=== PATIENT | female | born 1990 | race Caucasian/White ===

== ENCOUNTER 2024-03-15 03:19 | Emergency (ER) | payer OTHER ==
[~2024-03-15] VITALS: Ht 182.9 cm; Wt 122.0 kg
[~2024-03-15 03:19] MED LIST: CYCLOBENZAPRINE10 MG PO; PRENATAL MULTI1 EAC3 PO
[2024-03-15] MEDS ORDERED: OMEPRAZOLE20 MG PO (03:29)
[2024-03-15] MEDS ORDERED: DEXAMETHASONE SOD PHOS 4 MG/ML VIAL IM ONE (03:30)
[2024-03-15] MEDS ORDERED: LORazepam 0.5 MG TAB PO ONE (03:30)
[2024-03-15] MEDS ORDERED: LORazepam 1 MG HOME.PACK PO ONE (04:15)
[2024-03-15] MEDS ORDERED: methylPREDNISolone 4 MG HOME.PACK PO ONE (04:15)
[2024-03-15 04:18] VITALS: BP 118/83
== END 2024-03-15 04:19 | disposition home or self-care (01) ==
LOC: ED 03:19
DX: J02.9 Acute pharyngitis, unspecified (principal); Z88.0 Allergy status to penicillin; Z79.899 Other long term (current) drug therapy
CPT/HCPCS: 70360; 87651; 96372; 99283; J1100

== ENCOUNTER 2025-02-17 05:16 | Inpatient (IN) | payer OTHER ==
[~2025-02-17] VITALS: Ht 180.3 cm; Wt 115.2 kg
[~2025-02-17 05:16] MED LIST changes: +OMEPRAZOLE20 MG PO
[2025-02-17] MEDS ORDERED: OXYTOCIN/0.9 % SODIUM CHLORIDE 30 UNITS/500 ML BAG IV SCH (05:30)
[2025-02-17] MEDS ORDERED: MAGNESIUM HYDROXIDE/AL HYDROX 30 ML CUP PO PRN ×2 (05:30→15:45)
[2025-02-17] MEDS ORDERED: CALCIUM CARBONATE 500 MG CHEW PO PRN ×2 (05:30→15:45)
[2025-02-17] MEDS ORDERED: TERBUTALINE SULFATE 1 MG/ML AMP SUB-Q PRN (05:30)
[2025-02-17] MEDS ORDERED: LIDOCAINE HCL 1% 30 ML SDV INJ PRN (05:30)
[2025-02-17] MEDS ORDERED: LACTATED RINGER'S 1,000 ML IV PRN (05:30)
[2025-02-17 05:54] VITALS: BP 114/70
[2025-02-17 06:15] LABS: MCH 27.3 PG (25.6-32.2); MCHC 33.6 g/dL (32.2-35.5); MCV 81.2 fL (79.4-94.8); RBC 4.36 M/uL (3.93-5.22)
[2025-02-17 06:55] LABS: ABO B; ANTIBODY SCREEN NEGATIVE; RH POSITIVE
[2025-02-17] MEDS ORDERED: OXYTOCIN/0.9 % SODIUM CHLORIDE 500 ML IV SCH ×2 (07:30→15:45)
[2025-02-17] MEDS ORDERED: ROPIVACAINE 0.2% 200 ML BAG ONE (09:38)
[2025-02-17] MEDS ORDERED: ROPIVACAINE 0.2% 200 ML BAG EPIDURAL SCH (10:00)
[2025-02-17] MEDS ORDERED: LACTATED RINGER'S 2,000 ML IV ONE (10:00)
[2025-02-17] MEDS ORDERED: LACTATED RINGER'S 500 ML IV PRN (10:00)
[2025-02-17] MEDS ORDERED: ePHEDrine sulfate 5 MG/ML SYRINGE IV PRN (10:00)
[2025-02-17] MEDS ORDERED: Ropivacaine HCl 0.5% 30 ML VIAL ONE (11:26)
[2025-02-17] MEDS ORDERED: fentaNYL citrate 100 MCG/2 ML VIAL ONE (11:26)
[2025-02-17] MEDS ORDERED: LIDOCAINE HCL 2% 5 ML SDV ONE (11:26)
[2025-02-17] MEDS ORDERED: OXYCODONE/APAP 5/325 TAB PO PRN (15:45)
[2025-02-17] MEDS ORDERED: IBUPROFEN 600 MG TAB PO PRN (15:45)
[2025-02-17] MEDS ORDERED: HYDROCORTISONE ACETATE 25 MG SUPP PR PRN (15:45)
[2025-02-17] MEDS ORDERED: OXYCODONE HCL 5 MG TAB PO PRN (15:45)
[2025-02-17] MEDS ORDERED: ACETAMINOPHEN 325 MG TAB PO PRN (15:45)
[2025-02-17] MEDS ORDERED: BENZOCAINE 60 ML AEROSOL TOP PRN (15:45)
[2025-02-17] MEDS ORDERED: WITCH HAZEL/GLYCERIN 1 EA PAD TOP PRN (15:45)
[2025-02-17] MEDS ORDERED: MAGNESIUM HYDROXIDE 30 ML UDC PO PRN (15:45)
[2025-02-17] MEDS ORDERED: HYDROCODONE/ACETA 5/325 TAB PO PRN (15:45)
[2025-02-17] MEDS ORDERED: LIDOCAINE 2% VISCOUS 6 ML SYR TOP ONE ×2 (15:45)
[2025-02-17] MEDS ORDERED: SENNOSIDES/DOCUSATE 1 EA TAB PO SCH (21:00)
[2025-02-18 05:31] LABS: MCH 27.3 PG (25.6-32.2); MCHC 33.2 g/dL (32.2-35.5); MCV 82.1 fL (79.4-94.8); RBC 3.92 M/uL (3.93-5.22)
== END 2025-02-18 17:18 | disposition home or self-care (01) | DRG 807 ==
LOC: FBC 05:16
PROVIDERS: ADMIT Obstetrics & Gynecology; ATTEND Obstetrics & Gynecology
PROC: 10E0XZZ Delivery of Products of Conception, External Approach (ICD-10-PCS; principal; 2025-02-17)
PROC: 3E0R3BZ Introduction of Anesthetic Agent into Spinal Canal, Percutaneous Approach (ICD-10-PCS; 2025-02-17)
PROC: 00HU33Z Insertion of Infusion Device into Spinal Canal, Percutaneous Approach (ICD-10-PCS; 2025-02-17)
PROC: 0UQMXZZ Repair Vulva, External Approach (ICD-10-PCS; 2025-02-17)
DX: O98.32 Other infections with a predominantly sexual mode of transmission complicating childbirth (principal); Z37.0 Single live birth; A60.09 Herpesviral infection of other urogenital tract; O71.82 Other specified trauma to perineum and vulva; O99.214 Obesity complicating childbirth; Z3A.38 38 weeks gestation of pregnancy
CPT/HCPCS: 01961; 36415; 85027; 86850; 86900; 86901; A9270; J2003; J2795; J3010; J7121